=== PATIENT | female | born 1965 | race Caucasian/White ===

== ENCOUNTER → 2016-10-27 | Outpatient (CLI) | payer OTHER ==
--- NOTE | 2016-10-27 14:59 | US ---
EXAMINATION TYPE: US thyroid st tissue head/neck DATE OF EXAM: 10/27/2016 2:29 PM COMPARISON: CLINICAL HISTORY: E04.2 Thyroid Nodule. Follow up nodules, hx of biopsy = normal GLAND SIZE: Right Lobe: 4.5 x 2.6 x 2.6 cm Overall Parenchyma: homogenous Left Lobe: 4.7 x 1.6 x 1.6 cm Overall Parenchyma: homogeneous Isthmus Thickness: 0.1 cm NODULES RIGHT: # of nodules measured on right: 2 1. 3.0 X 2.3 x 2.2 cm Complex solid nodule at the upper/mid pole with well-defined margins. This n odule is taller than wide and shows intranodular vascularity. Prior size: 3.0 x 2.0 x 2.2 cm 2. 0.4 X 0.4 x 0.4 cm cystic nodule at the lower pole with well-defined margins. This nodule shows no intranodular vascularity. Prior size: 0.8 x 0.6 x 0.7 cm LEFT: # of nodules measured on left: 0 ISTHMUS: # of nodules measured in the isthmus: 0 Bilateral neck scanned, no evidence of lymphadenopathy. IMPRESSION: Dominant 3 cm complex nodule right lobe of the thyroid. Appears stable in size from previous.
== END | disposition home or self-care (01) ==
LOC: RADUSWWP 13:55
PROVIDERS: ATTEND Internal Medicine Endocrinology, Diabetes & Metabolism
DX: E04.1 Nontoxic single thyroid nodule (principal)
CPT/HCPCS: 76536

== ENCOUNTER → 2016-10-27 | Outpatient (CLI) | payer OTHER ==
--- NOTE | 2016-10-28 14:27 | MM ---
Reason for exam: screening (asymptomatic). Last mammogram was performed 1 year and 1 month ago. History: Took hormonal contraceptives for 5 years 1 month beginning at age 37. Physical Findings: A clinical breast exam by your physician is recommended on an annual basis and results should be correlated with mammographic findings. MG 3D Screening Mammo W/Cad Bilateral CC and MLO view(s) were taken. Prior study comparison: September 22, 2015, bilateral MG 3d screening mammo w/cad. The breast tissue is heterogeneously dense. This may lower the sensitivity of mammography. There is chronic nodularity bilaterally. No significant changes when compared with prior studies. ASSESSMENT: Benign, BI-RAD 2 RECOMMENDATION: Routine screening mammogram of both breasts in 1 year.
== END | disposition home or self-care (01) ==
LOC: RADMAMWWP 13:47
PROVIDERS: ATTEND Obstetrics & Gynecology
DX: Z12.31 Encounter for screening mammogram for malignant neoplasm of breast (principal)
CPT/HCPCS: 77063; G0202

== ENCOUNTER → 2018-02-27 | Outpatient (CLI) | payer OTHER ==
--- NOTE | 2018-02-27 12:00 | MM ---
Reason for exam: screening (asymptomatic). Last mammogram was performed 1 year and 4 months ago. History: Patient is postmenopausal. Took hormonal contraceptives for 5 years 1 month beginning at age 37. Physical Findings: A clinical breast exam by your physician is recommended on an annual basis and results should be correlated with mammographic findings. MG 3D Screening Mammo W/Cad Bilateral CC and MLO view(s) were taken. Prior study comparison: October 27, 2016, bilateral MG 3d screening mammo w/cad. September 22, 2015, bilateral MG 3d screening mammo w/cad. The breast tissue is heterogeneously dense. This may lower the sensitivity of mammography. There is chronic nodularity in the right breast. There is no discrete abnormality. There are prominent skin lesions in the right breast redemonstrated. ASSESSMENT: Benign, BI-RAD 2 RECOMMENDATION: Routine screening mammogram of both breasts in 1 year.
== END | disposition home or self-care (01) ==
LOC: RADMAMWWP 07:21
PROVIDERS: ATTEND Obstetrics & Gynecology
DX: Z12.31 Encounter for screening mammogram for malignant neoplasm of breast (principal)
CPT/HCPCS: 77063; 77067

== ENCOUNTER → 2019-06-22 | Outpatient (CLI) | payer OTHER ==
--- NOTE | 2019-06-25 13:58 | MM ---
Reason for exam: screening (asymptomatic). Last mammogram was performed 1 year and 4 months ago. History: Patient is postmenopausal. Took hormonal contraceptives for 5 years 1 month beginning at age 37. Physical Findings: A clinical breast exam by your physician is recommended on an annual basis and results should be correlated with mammographic findings. MG 3D Screening Mammo W/Cad Bilateral CC and MLO view(s) were taken. Prior study comparison: February 27, 2018, bilateral MG 3d screening mammo w/cad. October 27, 2016, bilateral MG 3d screening mammo w/cad. The breast tissue is heterogeneously dense. This may lower the sensitivity of mammography. There is no discrete abnormality. ASSESSMENT: Negative, BI-RAD 1 RECOMMENDATION: Routine screening mammogram of both breasts in 1 year.
== END | disposition home or self-care (01) ==
LOC: RADMAMWWP 13:13
PROVIDERS: ATTEND Obstetrics & Gynecology
DX: Z12.31 Encounter for screening mammogram for malignant neoplasm of breast (principal)
CPT/HCPCS: 77063; 77067

== ENCOUNTER → 2019-06-25 | Outpatient (CLI) | payer OTHER ==
--- NOTE | 2019-06-25 22:36 | US ---
EXAMINATION TYPE: US thyroid st tissue head/neck DATE OF EXAM: 06/25/2019 COMPARISON: Thyroid ultrasound October 27, 2016 CLINICAL HISTORY: E04.1 SINGLE THYROID NODULE. follow up thyroid nodules. No thyroid meds. GLAND SIZE: Right Lobe: 4.8 x 2.1 x 2.8 cm Overall Parenchyma: homogenous Left Lobe: 4.5 x 1.5 x 1.4 cm Overall Parenchyma: homogeneous Isthmus Thickness: 0.2 cm NODULES RIGHT: # of nodules measured on right: 2 Multiple nodules seen, largest measured 1. 3.3 x 2.3 x 2.1 cm mixed nodule at the upper pole with well-defined margins. This nodule is wide r than tall and shows intranodular vascularity. Prior size: 3.0 x 2.3 x 2.2 cm 2. 0.6 X 0.7 x 0.5 cm hypoechoic nodule at the lower pole with well-defined margins. This nodule is wider than tall and shows no intranodular vascularity. Prior size: 0.4 x 0.4 x 0.4 cm LEFT: # of nodules measured on left: 1 1. 0.5 X 0.4 x 0.3 cm isoechoic nodule at the upper pole with well-defined margins. This nodule is wider than tall and shows no intranodular vascularity. Prior size: No prior ISTHMUS: # of nodules measured in the isthmus: 0 Bilateral neck scanned. Right lateral neck lymph node seen - 1.2 x 0.6 x 0.5 cm Redemonstration of homogeneous normal-sized thyroid with stable bilateral nodules including dominant just over 3 cm right thyroid nodule. Benign-appearing right subcentimeter neck lymph nodes noted at t he beginning of study. IMPRESSION: Overall stable findings, normal sized thyroid with dominant just over 3 cm solid and cyst ic right-sided nodule felt stable. No new greater than 1 cm nodules identified.
== END | disposition home or self-care (01) ==
LOC: RADUSWWP 16:55
PROVIDERS: ATTEND Family Medicine
DX: E04.1 Nontoxic single thyroid nodule (principal)
CPT/HCPCS: 76536

== ENCOUNTER → 2020-02-22 | Outpatient (CLI) | payer OTHER ==
[2020-02-22 09:07] LABS: T4, Free (Free Thyroxine) 0.78 ng/dL (0.78-2.19)
--- NOTE | 2020-02-22 14:00 | US ---
EXAMINATION TYPE: US thyroid st tissue head/neck DATE OF EXAM: 02/22/2020 COMPARISON: 06/25/2019 CLINICAL HISTORY: E04.1 SINGLE THYROID NODULE. follow up thyroid nodules GLAND SIZE: Right Lobe: 5.6 x 2.3 x 2.6 cm Overall Parenchyma: homogenous Left Lobe: 4.8 x 1.7 x 1.7 cm Overall Parenchyma: homogeneous Isthmus Thickness: 0.2 cm NODULES RIGHT: # of nodules measured on right: 1 1. 2.9 X 2.1 x 2.1 cm mixed nodule at the upper pole with well-defined margins; . This nodule is w ider than tall and shows intranodular vascularity. Prior size: 3.3 x 2.3 x 2.1 cm LEFT: # of nodules measured on left: 0 ISTHMUS: # of nodules measured in the isthmus: 0 *Multiple sub-centimeter nodules noted bilaterally, dominant nodule measured on the right Bilateral neck scanned, normal appearing lymph node right neck IMPRESSION: 1. Heterogenous thyroid lobes. 2. A large heterogenous nodule is within the right thyroid is slightly smaller than comparison
== END | disposition home or self-care (01) ==
LOC: RADUSWWP 07:06
PROVIDERS: ATTEND Family Medicine
DX: E04.1 Nontoxic single thyroid nodule (principal); E55.9 Vitamin D deficiency, unspecified
CPT/HCPCS: 36415; 76536; 82306; 84439; 84443; 84481

== ENCOUNTER → 2022-03-30 | Outpatient (CLI) | payer OTHER ==
--- NOTE | 2022-03-30 16:03 | US ---
EXAMINATION TYPE: US thyroid st tissue head/neck DATE OF EXAM: 03/30/2022 COMPARISON: Thyroid ultrasound 02/22/2020 CLINICAL HISTORY: E04.9 Goiter. f/u exam, nothing new GLAND SIZE: Right Lobe: 5.8 x 2.6 x 2.8 cm Overall Parenchyma: heterogenous Left Lobe: 4.7 x 1.2 x 1.6 cm Overall Parenchyma: homogeneous Isthmus Thickness: 0.2 cm NODULES RIGHT: # of nodules measured on right: multiple, largest measured 1. 2.9 X 2.5 x 2.3 cm, mid , mixed cystic and solid, hypoechoic nodule, which is wider than tall, w ith smooth margins, with echogenic foci. TR 4. Prior size: 2.9 x 2.1 x 2.1 cm LEFT: # of nodules measured on left: 0 ISTHMUS: # of nodules measured in the isthmus: 0 Bilateral neck scanned, no evidence of lymphadenopathy. IMPRESSION: Stable enlarged heterogenous nodule within the right thyroid lobe dating back to 2019 examination. Th is is amenable to FNA as clinically indicated. Additional stable smaller right thyroid lobe nodules.
--- NOTE | 2022-03-31 17:05 | MM ---
Reason for Exam: Screening (asymptomatic). Last mammogram was performed 2 year(s) and 9 month(s) ago. Patient History: Menarche at age 10. First Full-Term at age 22. Postmenopausal. Hormonal Contraceptives, starting at age 37 for 5 years, 1 month. Risk Values: Bernarda 5 year model risk: 1.2%. NCI Lifetime model risk: 6.9%. Prior Study Comparison: 10/27/2016 Bilateral Screening Mammogram, [facility]. 02/27/2018 Bilateral Screening Mammogram, [facility]. 06/22/2019 Bilateral Screening Mammogram, [facility]. Tissue Density: There are scattered fibroglandular densities. Findings: Analyzed By CAD. No suspicious groups of microcalcifications, spiculated or lobular masses, architectural distortion or other secondary signs of malignancy are mammographically apparent. Overall Assessment: Benign, BI-RAD 2 Management: Screening Mammogram of both breasts in 1 year. A negative mammogram report should not preclude additional follow up of suspicious palpable abnormalities. Patient should continue monthly self breast exam. A clinical breast exam by your physician is recommended on an annual basis and results should be correlated with mammographic findings. Electronically signed and approved by: Raymodn Chavarria D.O. Radiologis
== END | disposition home or self-care (01) ==
LOC: RADMAMWWP 15:11
PROVIDERS: ATTEND Obstetrics & Gynecology
DX: Z12.31 Encounter for screening mammogram for malignant neoplasm of breast (principal); E04.2 Nontoxic multinodular goiter
CPT/HCPCS: 76536; 77063; 77067

== ENCOUNTER → 2022-12-28 | Outpatient (CLI) | payer OTHER ==
--- NOTE | 2022-12-28 17:32 | BD ---
EXAMINATION TYPE: Axial Bone Density DATE OF EXAM: 12/28/2022 CLINICAL HISTORY: 57 years old Female. ICD-10 CODE: Z13.820 SCREENING FOR OSTEOPOROSIS Height: 63.2 Weight: 162 FRAX RISK QUESTIONS: Family History (Parent hip fracture): yes RISK FACTORS HISTORY OF: hx of ankle and finger fractures as a young adult Family History of Osteoporosis: grandfather, hip fx, mother, osteopenia, several aunts on maternal si de, Postmenopausal woman: yes, at 49 Hyperparathyroidism: no Adrenal Insufficiency: no MEDICATIONS: Additional Medications: reflux meds, Additional History: reflux in the past, uses tums now EXAM MEASUREMENTS: Bone mineral densitometry was performed using the [employer] System. Bone mineral density as measured about the Lumbar spine is: ----- L1-L4(G/cm2): 0.789 T Score Values are as follows: ----- L1: -3.1 ----- L2: -3.7 ----- L3: -3.4 ----- L4: -3.0 ----- L1-L4: -3.3 Z Score Values are as follows: ----- L1: -2.2 ----- L2: -2.9 ----- L3: -2.6 ----- L4: -2.2 ----- L1-L4: -2.4 Bone mineral density is her first dexa at [facility]. Bone mineral density about the R hip (g/cm2): 0.773 Bone mineral density about the L hip (g/cm2): 0.770 T Score values are as follows: -----R Neck: -2.3 -----L Neck: -2.2 -----R Total: -1.9 -----L Total: -1.9 Z Score values are as follows: -----R Neck: -1.3 -----L Neck: -1.2 -----R Total: -1.2 -----L Total: -1.2 Bone mineral density first bone density at [facility]. FRAX%s: The graph provided illustrates a 10.3% chance for a major osteoporotic fx and a 1.6% chance f or the hips probability for fx in 10 years time. IMPRESSION: Osteopenia (T Score between -2.5 and -1). There is slightly increased risk of fracture and the patient may be considered for treatment. Re-Screen 2-5 years. NOTE: T-SCORE=SD OF THE YOUNG ADULT MEAN.
== END | disposition home or self-care (01) ==
LOC: RADBDWWP 10:28
PROVIDERS: ATTEND Family Medicine
DX: Z13.820 Encounter for screening for osteoporosis (principal); M81.0 Age-related osteoporosis without current pathological fracture; M85.89 Other specified disorders of bone density and structure, multiple sites; K21.9 Gastro-esophageal reflux disease without esophagitis; Z78.0 Asymptomatic menopausal state
CPT/HCPCS: 77080

== ENCOUNTER → 2023-03-31 | Outpatient (CLI) | payer OTHER ==
--- NOTE | 2023-03-31 10:37 | MM ---
Reason for Exam: Screening (asymptomatic). Last screening mammogram was performed 12 month(s) ago. Indicated Problems: Pain of the left side (Global) for 1 Year(s). Patient History: Menarche at age 10. First Full-Term at age 22. Postmenopausal. Hormonal Contraceptives, starting at age 37 for 5 years, 1 month. Risk Values: Bernarda 5 year model risk: 1.2%. NCI Lifetime model risk: 6.7%. Prior Study Comparison: 02/27/2018 Bilateral Screening Mammogram, [facility]. 06/22/2019 Bilateral Screening Mammogram, [facility]. 03/30/2022 Bilateral MG 3D screening mammo w/cad, [facility]. Tissue Density: The breast tissue is heterogeneously dense. This may lower the sensitivity of mammography. Findings: Analyzed By CAD. There is no suspicious group of microcalcifications or new suspicious mass. Overall Assessment: Negative, BI-RAD 1 Management: Screening Mammogram of both breasts in [address] [facility] will attempt to contact patient to return for supplemental views and ultrasound if indicated. Patient should continue monthly self-breast exams. A clinical breast exam by your physician is recommended on an annual basis. This exam should not preclude additional follow-up of suspicious palpable abnormalities. Note on Bernarda scores and lifetime risk: 1. A Bernarda score greater than 3% is considered moderate risk. If this is the case, consider specialist referral to assess eligibility for a risk reducing agent. 2. If overall lifetime risk for the development of breast cancer is 20% or higher, the patient may qualify for future screening with alternating mammogram and breast MRI. Electronically signed and approved by: Edward Crow DO
--- NOTE | 2023-03-31 13:23 | US ---
EXAMINATION TYPE: US thyroid st tissue head/neck DATE OF EXAM: 03/31/2023 COMPARISON: 03/30/2022 CLINICAL INDICATION: Female, 57 years old with history of E04.1 nodule; f/u exam GLAND SIZE: Right Lobe: 5.8 x 2.8 x 2.6 cm Overall Parenchyma: heterogenous Left Lobe: 4.7 x 1.2 x 1.6 cm Overall Parenchyma: homogeneous Isthmus Thickness: 0.2 cm NODULES RIGHT: # of nodules measured on right: 1 = h/o FNA 1. 2.9 x 2.5 x 2.3 cm, mid, Prior size: 2.9 x 2.1 x 2.10 cm TIRADS Score: 3 TIRADS Category 3: Mildly Suspicious Composition: Mixed cystic and solid (1 point). Echogenicity: Hyperechoic or isoechoic (1 point). Shape: Wider than tall (0 points). Margin: Smooth (0 points). Echogenic foci: Macrocalcifications (1 point) Recommendation: If >2.5cm: FNA; If >1.5cm: Follow up at 1,3,5 years LEFT: # of nodules measured on left: 0 ISTHMUS: # of nodules measured in the isthmus: 0 Bilateral neck scanned, no evidence of lymphadenopathy. IMPRESSION: No suspicious pulmonary nodules.
== END | disposition home or self-care (01) ==
LOC: RADMAMWWP 09:34
PROVIDERS: ATTEND Family Medicine
DX: Z12.31 Encounter for screening mammogram for malignant neoplasm of breast (principal); E04.1 Nontoxic single thyroid nodule; Z78.0 Asymptomatic menopausal state
CPT/HCPCS: 76536; 77063; 77067

== ENCOUNTER → 2024-04-02 | Outpatient (CLI) | payer OTHER ==
--- NOTE | 2024-04-02 08:36 | US ---
EXAMINATION TYPE: US thyroid st tissue head/neck DATE OF EXAM: 04/02/2024 COMPARISON: 03/31/23 CLINICAL INDICATION: Female, 58 years old with history of E04.1 Nodule SINGLE; follow up on nodule TECHNIQUE: Grayscale and color Doppler imaging of the thyroid gland. FINDINGS: GLAND SIZE: Right Lobe: 5.2 x 2.5 x 2.2 cm Overall Parenchyma: homogeneous Left Lobe: 5.2 x 1.5 x 1.8 cm Overall Parenchyma: homogeneous Isthmus Thickness: 0.2 cm NODULES RIGHT: # of nodules measured on right: 2 1. 2.8 X 2.4 x 2.2 cm, upper mid, Prior size: 2.9 x 2.5 x 2.3 cm TIRADS Score: 3 TIRADS Category 3: Composition: Mixed cystic and solid (1 point). Echogenicity: Hyperechoic or isoechoic (1 point). Shape: Wider than tall (0 points). Margin: Smooth (0 points). Echogenic foci: Macrocalcifications (1 point) Recommendation: If >2.5cm: FNA; If >1.5cm: Follow up at 1,3,5 years 2. 0.9 X 0.9 x 0.6 cm, lower mid, solid or almost completely solid, TIRADS Score: 3 TIRADS Category 3: Composition: Solid or almost completely solid (2 points). Echogenicity: Hyperechoic or isoechoic (1 point). Shape: Wider than tall (0 points). Margin: Smooth (0 points). Recommendation: If >2.5cm: FNA; If >1.5cm: Follow up at 1,3,5 years LEFT: # of nodules measured on left: 0 ISTHMUS: # of nodules measured in the isthmus: 0 Bilateral neck scanned, no evidence of lymphadenopathy. IMPRESSION: Thyroid nodules which are no significantly changed dating back to 2019. 2017 ACR TI-RADS LEVEL: TR-RADS 3 - Mildly Suspicious: Follow if > 1.5 cm, FNA if > 2.5 cm *Highest TI-RADS level nodule reported [email or web address], , 04/02/2024 8:33 AM
--- NOTE | 2024-04-03 10:02 | MM ---
Reason for Exam: Screening (asymptomatic). Last screening mammogram was performed 12 month(s) ago. Patient History: Menarche at age 10. First Full-Term at age 22. Postmenopausal. Hormonal Contraceptives, starting at age 37 for 5 years, 1 month. Risk Values: Bernarda 5 year model risk: 1.3%. NCI Lifetime model risk: 6.6%. Prior Study Comparison: 06/22/2019 Bilateral Screening Mammogram, [facility]. 03/30/2022 Bilateral MG 3D screening mammo w/cad, [facility]. 03/31/2023 Bilateral MG 3D screening mammo w/cad, [facility]. Tissue Density: The breasts are heterogeneously dense, which may obscure small masses. Findings: Analyzed By CAD. Unchanged bilateral asymmetric densities. There is no suspicious group of microcalcifications or new suspicious mass in either breast. Overall Assessment: Benign, BI-RAD 2 Management: Screening Mammogram of both breasts in 1 year. . Patient should continue monthly self-breast exams. A clinical breast exam by your physician is recommended on an annual basis. This exam should not preclude additional follow-up of suspicious palpable abnormalities. Note on Bernarda scores and lifetime risk: 1. A Bernarda score greater than 3% is considered moderate risk. If this is the case, consider specialist referral to assess eligibility for a risk reducing agent. 2. If overall lifetime risk for the development of breast cancer is 20% or higher, the patient may qualify for future screening with alternating mammogram and breast MRI. [facility], , 04/03/2024 10:00 AM. Electronically signed and approved by: Ben Peacock M.D. Radiologist
== END | disposition home or self-care (01) ==
LOC: RADMAMWWP 07:00
PROVIDERS: ATTEND Family Medicine
CPT/HCPCS: 76536; 77063; 77067